=== PATIENT | female | born 1930 | race Caucasian/White ===

== ENCOUNTER 2018-12-14 14:47 | Outpatient (CLI) | payer MEDICARE ==
--- NOTE | 2018-12-14 15:26 | RAD ---
XR Chest Pa Lat @ [facility] HISTORY: Dyspnea COMPARISON: 12/22/2016 FINDINGS: Changes of COPD are again seen. The heart size normal. The aorta is tortuous. No lobar cons olidation, pneumothoraces or pleural effusions are identified. Bones are osteopenic. IMPRESSION: No radiographic evidence of acute cardiopulmonary process.
== END 2018-12-14 14:48 | disposition home or self-care (01) ==
LOC: RAD 14:47
PROVIDERS: ATTEND Internal Medicine Pulmonary Disease
DX: R06.00 Dyspnea, unspecified (principal)
CPT/HCPCS: 71046